=== PATIENT | female | born 1955 | race Caucasian/White ===

== ENCOUNTER → 2016-04-21 | Outpatient (CLI) | payer OTHER ==
[~2016-04-21] MED LIST: ADVIL200 M1; AMLODIPINE BESYL5 MG PO; ASPIRIN PO; BUPROPION XL300 MG PO; CALCIUM 500 + D1 TAB PO; CARVEDILOL12.5 MG PO; CENTRUM PO; CENTRUM SILVER1 EAC3 PO; CHANTIX0.5 MG PO; CLEOCIN PO; COREG6.25 MG PO; ECOTRIN325 MG PO; FISH OIL PO; IBUPROFEN800 MG PO; LISINOPRIL10 MG PO; LORTAB 10-3251 EACH PO; LORTAB 7.5-5001 TAB PO; PEPCID AC20 M2 PO; PRILOSEC PO; PRILOSEC40 MG PO; SUPER B COMPLE150 MG; TRAMADOL HCL50 M1 PO; VIT B COMPLEX PO; VITAMIN D 4001 UDTAB PO; VOLTAREN75 MG PO
--- NOTE | ~2016-04-21 | MR103 ---
[facility] A Service of [facility] RADIOLOGY TEXT RESULTS PATIENT: JARROD ALARCON [facility] UNIT #: [id number] AGE: [address]: Aravind Ferguson MD SEX: F ORDER DR: [id number] [facility] [address] [place], [place] [address] [id number] O MR#: [id number] Acc #: [id number] NAME: JARROD ALARCON : 1955 SEX: F STUDY DATE/TIME: 04/21/2016 20:26 UNIT: [facility] ROOM: STUDY DESCRIPTION: MR Knee Wo Contrast Lt Attending Physician: Generic Doctor Not In System Referring Physician: Generic Doctor Not In System Ordering Physician: Physician Non-Staff Primary Care Physician: Moe Lake M.D. MRI CENTER REPORT This report is preliminary unless electronic signature is present. EXAM Left knee MRI without contrast 04/21/2016 HISTORY A 60-year-old female with left knee pain since surgery in January 2015. COMPARISON STUDIES Left knee MRI 01/09/2015. TECHNIQUE Routine unenhanced multiplanar, multisequence high field MR imaging of the left knee was performed. FINDINGS There is a significantly diminutive appearance of the posterior horn medial meniscus consistent with prior partial medial meniscectomy. The remnant of the posterior horn is degenerated. There is degenerative fraying involving the free margin of the lateral body segment lateral meniscus. Cruciate and collateral ligaments are intact. Extensor mechanism is intact. There is a moderate joint effusion. No significant popliteal cyst. 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 There is full-thickness articular cartilage loss in the central femoral trochlea which is unchanged. Lateral compartment demonstrates moderate to high-grade chondromalacia along the central weightbearing lateral tibial plateau. This is unchanged from the prior study. There is extensive full-thickness articular cartilage loss throughout the medial compartment which has progressed significantly since [facility] A Service [facility] RADIOLOGY TEXT RESULTS PATIENT: JARROD ALARCON LOCATION: [facility] : 53 UNIT #: [id number] AGE: [address]: Aravind Ferguson MD SEX: F ORDER DR: the previous study. There is reactive subchondral marrow edema in the far medial aspect of the medial femoral condyle and medial tibial plateau. Remaining bone marrow signal is within expected limits. Visualized musculature is unremarkable. IMPRESSION 1. Postsurgical changes from prior partial medial meniscectomy. There is diffuse degeneration of the remnant of the posterior horn of the medial meniscus. 2. Degenerative fraying of the free margin body segment lateral meniscus. 3. No acute ligament injury. 4. Extensive full-thickness articular cartilage loss throughout the medial compartment which has progressed significantly since the prior examination. There is reactive subchondral marrow edema in the medial femoral condyle and medial tibial plateau. 5. 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 These findings are unchanged from the prior study. Some moderate joint effusion. Dictated by... Nnamdi Mao M.D. THIS IS AN ELECTRONICALLY VERIFIED REPORT Nnamdi Mao M.D. at 04/23/2016 3:56 PM WEN/joel TD: 04/22/2016 13:26 JOB #: [id number] MRI CENTER REPORT COPY
== END | disposition home or self-care (01) ==
LOC: CMRI 19:24
DX: S83.207A Unspecified tear of unspecified meniscus, current injury, left knee, initial encounter (principal); M25.562 Pain in left knee; M23.301 Other meniscus derangements, unspecified lateral meniscus, left knee; M22.42 Chondromalacia patellae, left knee; M25.462 Effusion, left knee; Z98.890 Other specified postprocedural states
CPT/HCPCS: 73721

== ENCOUNTER → 2016-05-21 | Outpatient (CLI) | payer BC ==
--- NOTE | ~2016-05-21 | CR63 ---
[facility] A Service of [facility] & [facility] RADIOLOGY TEXT RESULTS PATIENT: JARROD ALARCON LOCATION: [facility] : 53 UNIT #: [id number] AGE: [address]: Aravind Ferguson MD SEX: F ORDER DR: [id number] [facility] [address] [place], [place] [address] [id number] O MR#: [id number] Acc #: [id number] NAME: JARROD ALARCON : 1955 SEX: F STUDY DATE/TIME: 05/21/2016 13:09 UNIT: [facility] ROOM: STUDY DESCRIPTION: CR Chest 2 View Attending Physician: Aravind Ferguson M.D. Referring Physician: Aravind Ferguson M.D. Ordering Physician: Aravind Ferguson M.D. Primary Care Physician: Moe Lake M.D. MEDICAL IMAGING REPORT This report is preliminary unless electronic signature is present EXAM Chest 05/21/2016 HISTORY 61-year-old woman preop clearance for a left total knee arthroplasty. Osteoarthritis. Pain swelling with morbid obesity. Sleep apnea. Patient gives smoking history. COMPARISON 06/01/2015. FINDINGS Two-view chest demonstrates normal cardiac size and configuration. Aorta appears normal. Hilar structures are preserved. Right lung is fully expanded and clear. Left lung demonstrates discoid atelectasis in the left lower lobe. There also appears to be partial eventration of the left hemidiaphragm. Lap band is noted with a questionable hiatal hernia. IMPRESSION Discoid atelectasis left lung base. Previous lap band placement with questionable associated hiatal hernia. Partial eventration left hemidiaphragm. No acute chest finding. Dictated by... Sonido Benoit M.D. THIS IS AN ELECTRONICALLY VERIFIED REPORT Sonido Benoit M.D. at 05/21/2016 1:59 PM FERNANDO/john TD: 05/21/2016 13:53 JOB #: [id number] [facility] A Service of [facility] & [facility] RADIOLOGY TEXT RESULTS PATIENT: JARROD ALARCON LOCATION: [facility] : 53 UNIT #: [id number] AGE: [address]: Aravind Ferguson MD SEX: F ORDER DR: MEDICAL IMAGING REPORT Page 1 of 1 COPY
--- NOTE | ~2016-05-21 | CR172 ---
[facility] A Service of [facility] & [facility] RADIOLOGY TEXT RESULTS PATIENT: JARROD ALARCON LOCATION: [facility] : 53 UNIT #: [id number] AGE: [address]: Aravind Ferguson MD SEX: F ORDER DR: [id number] [facility] [address] [place], [place] [address] [id number] O MR#: [id number] Acc #: [id number] NAME: JARROD ALARCON : 1955 SEX: F STUDY DATE/TIME: 05/21/2016 13:15 UNIT: [facility] ROOM: STUDY DESCRIPTION: CR Knee 3 Views Lt Attending Physician: Aravind Ferguson M.D. Referring Physician: Aravind Ferguson M.D. Ordering Physician: Aravind Ferguson M.D. Primary Care Physician: Moe Lake M.D. MEDICAL IMAGING REPORT This report is preliminary unless electronic signature is present EXAM Left knee 3 views INDICATIONS 61-year-old female preop for left knee arthroplasty. COMPARISON 12/15/2014 FINDINGS There is moderate medial compartment narrowing. There is patellofemoral compartment and lateral compartment degenerative change. No joint effusion or fracture. IMPRESSION Moderate medial compartment narrowing Dictated by... Bennie Lambert M.D. THIS IS AN ELECTRONICALLY VERIFIED REPORT Bennie Lambert M.D. at 05/21/2016 4:30 PM SHELTON/jaylon TD: 05/21/2016 15:24 JOB #: [id number] MEDICAL IMAGING REPORT Page 1 of 1 COPY
--- NOTE | ~2016-05-21 | EKG ---
PATIENT: JARROD ALARCON UNIT #: [id number] Ventricular Rate: 80 BPM Atrial Rate: 80 BPM P-R Interval: 154 ms QRS Duration: 86 ms Q-T Interval: 402 ms QTC Calculation(Bezet): 463 ms P [place]: 64 degrees Calculated R [place]: -9 degrees Calculated T [place]: 31 degrees Diagnosis Line: Normal sinus rhythm Diagnosis Line: Low voltage QRS Diagnosis Line: Otherwise normal ECG Diagnosis Line: When compared with ECG of 28-JUN-2015 10:03, Diagnosis Line: T wave amplitude has decreased in Anterior leads Diagnosis Line: Confirmed by OLENA FLYNN MD ([id number]) on 05/21/2016 Diagnosis Line: 9:23:28 PM INTERPRETING MD: GEE ALANIS
[2016-05-21 11:47] LABS: HEMATOCRIT 37.9 % (35.0-45.0); HEMOGLOBIN 12.6 gm/dL (12.0-16.0); MEAN CELL VOLUME 89.7 FL (83-96); MEAN CORPUSCULAR HEMOGLOBIN 29.8 PG (28-34); MEAN CORPUSCULAR HGB CONC 33.2 g/dL (30-36); MEAN PLATELET VOLUME 9.7 FL (6.5-11.5); RED BLOOD COUNT 4.22 X10e (3.90-5.30); RED CELL DISTRIBUTION WIDTH 14.8 % (11.0-15.5)
[2016-05-21 11:58] LABS: URINE APPEARANCE CLEAR; URINE BILIRUBIN NEG (NEG); URINE BLOOD NEG (NEG); URINE COLOR YELLOW; URINE GLUCOSE NEG (NEG); URINE KETONE NEG (NEG); URINE LEUKOCYTE ESTERASE TRACE (NEG); URINE NITRATE NEG (NEG); URINE PH 5.5 (5-8); URINE PROTEIN NEG (NEG); URINE SPECIFIC GRAVITY 1.009 (1.003-1.035); URINE UROBILINOGEN 0.2 MG/DL (NEG)
[2016-05-21 11:59] LABS: PROTHROMBIN TIME (PATIENT) 10.8 SECONDS (9.6-11.5)
[2016-05-21 12:02] LABS: URBCS1 AUWI 0-2 /[HPF] (0-2); URINE BACTERIA AUWI NEG (NEGATIVE); URINE SQUAMOUS EPITHELIAL CELL NONE SEEN /[HPF]; UWBCS1 AUWI 0-2 (0-5)
[2016-05-21 12:07] LABS: CULTURE INDICATED? NO; URINE SOURCE CLEAN CATCH
[2016-05-21 12:26] LABS: CALCIUM SERUM 8.6 mg/dL (8.4-10.2); CREATININE SERUM 0.7 mg/dL (0.6-1.4); GLOM FILT RATE Estimated 92.2 mL/min (>60); POTASSIUM 3.9 mmol/L (3.5-5.1)
== END | disposition home or self-care (01) ==
LOC: CAMB 10:50
PROVIDERS: Orthopaedic Surgery
DX: Z01.818 Encounter for other preprocedural examination (principal); M17.12 Unilateral primary osteoarthritis, left knee; G47.30 Sleep apnea, unspecified; J98.11 Atelectasis; Z98.84 Bariatric surgery status
CPT/HCPCS: 36415; 71020; 73562; 80048; 81003; 85027; 85610; 86850; 86900; 86901; 87070; 93005

== ENCOUNTER 2016-06-03 05:50 | Inpatient (IN) | payer BC ==
--- NOTE | ~2016-06-03 | CR169 ---
[facility] A Service of [facility] & [facility] RADIOLOGY TEXT RESULTS PATIENT: JARROD ALARCON LOCATION: [facility]01 : 51 UNIT #: [id number] AGE: [address]: Aravind Ferguson MD SEX: F ORDER DR: [id number] [facility] [address] [place], [place] [address] [id number] I MR#: [id number] Acc #: [id number] NAME: JARROD ALARCON : 1955 SEX: F STUDY DATE/TIME: 06/03/2016 10:17 UNIT: [facility] ROOM: [facility] STUDY DESCRIPTION: CR Knee 2 Views Lt Attending Physician: Aravind Ferguson M.D. Ordering Physician: Aravind Ferguson M.D. Primary Care Physician: Moe Lake M.D. MEDICAL IMAGING REPORT This report is preliminary unless electronic signature is present EXAM Left knee. HISTORY Left total knee replacement. Evaluate prosthesis. FINDINGS AP and lateral views of the knee were obtained. Compared to 05/21/2016. Left total knee prosthesis present. There is no fracture or dislocation. IMPRESSION Status post left total knee replacement. Dictated by... Robinson Doherty M.D. THIS IS AN ELECTRONICALLY VERIFIED REPORT Robinson Doherty M.D. at 06/03/2016 2:47 PM Gabriela TD: 06/03/2016 13:13 JOB #: [id number] MEDICAL IMAGING REPORT Page 1 of 1 COPY
--- NOTE | ~2016-06-03 | OR ---
Unit #: [id number] #: [id number] Patient: JARROD WATTS [id number] [address] [place], [place] [address] [id number] I MR#: [id number] NAME: JARROD WATTS ROOM: [facility] Date of Procedure: 06/03/2016 Admission Date: 06/03/2016 Surgeon: Aravind Ferguson M.D. : 1955 Attending Physician: Aravind Ferguson M.D. Primary Care Physician: Moe Lake M.D. OPERATIVE REPORT PREOPERATIVE DIAGNOSIS Left knee primary osteoarthritis. POSTOPERATIVE DIAGNOSIS Left knee primary osteoarthritis. PROCEDURE PERFORMED Left total knee arthroplasty. SPEECH PATHOLOGY ASSISTANT Ant Viramontes CFA. ANESTHESIA General with LMA. COMPLICATIONS None. SPECIMENS None. DRAINS None. SURGICAL IMPLANTS 1. Kamila Persona total knee arthroplasty system. Size 6 PS femoral component. 2. Size D tibial tray with stem extension, size 11 vitamin E polyethylene insert. 3. 32 mm vitamin E patellar button. INDICATIONS FOR PROCEDURE Ms. Watts is a 61-year-old female patient of [facility], who has had persistent left medial side knee pain. Her injury occurred at work over a year ago. She subsequently had knee arthroscopy for meniscal tear. She had progressive knee arthritis after the tear. She failed to respond to conservative treatment. She wished to proceed with elective knee surgery. It was felt that she would benefit from total knee arthroplasty since conservative treatment had failed. Risks, benefits, and alternatives of surgery were discussed with the patient. Informed consent was obtained. Risks include, but not limited to, infection, bleeding, nerve injury, blood clots, risks associated with anesthesia, need for further surgery, Unit #: [id number] #: [id number] Patient: JARROD WATTS and possibly . DESCRIPTION OF PROCEDURE On 06/03/2016, the patient was seen in preoperative holding area, where her surgical site was marked. Preoperative antibiotics were received. H and P and consent updated. Preoperative block performed. She was taken to the operating room and placed on operative table in supine position. General anesthesia was provided without complication. Left thigh high tourniquet was placed. Left lower extremity was prepped and draped in typical sterile fashion. Time-out was performed confirming the correct surgical site and procedure. Esmarch was used to exsanguinate the leg and tourniquet was inflated to 300 mmHg. The knee was flexed and a standard anterior approach for total knee arthroplasty was performed. A longitudinal incision was made. Medial parapatellar arthrotomy was then made. The leg was extended and the fat pad was excised. Patella was everted. There was significant wear of the patellofemoral joint. It was measured about 23 mm. Reamer was then used to take it down to about 15 mm in depth. It was sized at 32 mm. Three lug holes were drilled in standard fashion. Patellar guard was placed. Retractors were then placed and the knee was flexed up. Starting drill was placed into the femur followed by the sword and distal femoral cutting jig. It was set at +[address]. There was also a 5 degrees valgus. Distal femoral cut was made. Next, the anterior referencing guide was used. It was measured at a size 6. The four-in-one cutting jig was placed. It was at 3 degrees external rotation. Four cuts were made with careful protection of soft tissues. No notching noted. Instruments were removed and focus was placed on the tibia. Tibial jig was placed. Careful attention of slope, height, and varus/valgus noted. 4 mm was measured off the medial side. Drop izabel checked alignment. The tibial cut was carefully made. Sizing blocks were used. It was felt to still be tight in flexion and extension. Tibial guide was placed back and 2 more millimeters were taken down. Next, the tibial tray was pinned into place. Femoral trial component was placed. A 10 mm insert was placed. The knee was flexed and extended. It was felt 11 mm was more appropriate. The patella tracked midline. At this point, final components were placed on the back table. The knee was thoroughly irrigated. Cement was mixed on the back table. This was Palacos R+G cement. It was then placed on the tibia followed by placement of tibial tray. Excess cement removed. In similar fashion, the femur was placed along with the patella button. A trial 11 mm insert was placed. After approximately 12 minutes, the cement had hardened. The remainder of 3 L normal saline containing bacitracin was pulsed through the wound. It was felt the 11 mm insert was appropriate. The final 11 mm polyethylene insert was placed in standard fashion. The knee was cycled and noted to be stable with full motion. At this point, tourniquet was released. Tranexamic acid had been provided. Hemostasis was achieved. Approximately 300 mL of Betadine saline solution was poured into the wound. It was then suctioned dry followed by standard saline. At this point, the arthrotomy was closed with #1 Vicryl suture followed by 2-0 Vicryl for subcutaneous tissues and 3-0 running subcuticular Monocryl stitch for the skin. Dermabond, Telfa, and Tegaderm were placed followed by an Valentin bandage. The patient was subsequently awakened from general anesthesia in stable condition and taken to PACU postoperatively. POSTOPERATIVE PLAN The patient will be kept in the hospital. She will be on Lovenox for DVT prophylaxis while in the hospital and transition to aspirin daily for 6 weeks upon discharge. She will have standard 24-hour antibiotic protocol. She will have SCDs. She will be weightbearing as tolerated with physical Unit #: [id number] #: [id number] Patient: JARROD WATTS. No complications were encountered during the surgical procedure. Dictated by... Mary Kevin/ashok TD: 06/04/2016 05:52 JOB #: [id number] OPERATIVE REPORT Page 1 of 1 X X PROCEDURE OPERATIVE NOTE
--- NOTE | ~2016-06-03 | DS ---
Unit #: [id number] #: [id number] Patient: JARROD ALARCON [id number] [address] [place], [place] [address] [id number] I MR#: [id number] NAME: JARROD ALARCON ROOM: 447 Age: 61 Sex: F Admission Date: 06/03/2016 : 1955 Discharge Date: 06/04/2016 Attending Physician: Aravind Ferguson M.D. Primary Care Physician: Moe Lake M.D. DISCHARGE SUMMARY DISCHARGE DIAGNOSIS Left knee osteoarthritis status post total knee arthroplasty. DISCHARGE MEDICATIONS The patient will restart all of her home medications in addition to [place] 10/325 mg 1-2 tablets p.o. q.4 hours p.r.n. pain. She, also, will restart her aspirin 325 mg p.o. daily for DVT prophylaxis. DETAILS OF HOSPITAL STAY Ms. Alarcon had an uneventful left total knee arthroplasty one day prior. She worked well with physical therapy. She is felt to be safe for discharge home. Labs were stable postoperatively. Pain was controlled. DISPOSITION Home. DISCHARGE INSTRUCTIONS 1. Patient will keep the dressing on, but she may shower. 2. She will work on range of motion with therapy. 3. She will have home physical therapy come to her house. 4. She is weightbearing as tolerated. 5. She will take aspirin daily, 325 mg, for DVT prophylaxis. 6. The patient had a preoperative assessment and met criteria for once daily aspirin. 7. She will follow up in 2 weeks. Dictated by... Aravind Ferguson M.D. MILANA/ernestine TD: 06/04/2016 09:16 JOB #: [id number] Unit #: [id number] #: [id number] Patient: JARROD ALARCON DISCHARGE SUMMARY Page 1 of 1 X X DISCHARGE SUMMARY
--- NOTE | ~2016-06-03 | BMI ---
[facility] Nutrition Therapy DATE: 06/04/16 Patient: JARROD ALARCON Physician: DESIRE Address: [address] [place] [address] Room/Bed: [address] [place] [address], Zip: [place] [address] Admit Date: 06/03/16 Date of : [birth year] Height: 5 1 Weight: 236 107.5 HIGH BMI NOTE: DX: 61 Y.O. FEMALE ADMITTED FOR OSTEOARTHRITIS (L) KNEE ANTHROPOMETRICS: 5'1", WT: 236# (107 KG), BMI: 44.6 DIET: REGULAR INTERVENTION: 1. REGULAR DIET RECOMMENDATIONS: 1. RECOMMEND TO CHANGE CURRENT DIET ORDER TO CC+HH TO PROMOTE GRADUAL WEIGHT LOSS TOWARDS HEALTHY BMI (19.0-25.0) OR +/-10%IBW RD WILL F/U PER PROTOCOL Respectfully, RICHMOND GOMEZ MS, RD, LD [facility] cc: client file
[~2016-06-03 05:50] MED LIST changes: -AMLODIPINE BESYL5 MG PO; -BUPROPION XL300 MG PO; -CARVEDILOL12.5 MG PO; -CENTRUM SILVER1 EAC3 PO; -COREG6.25 MG PO; -ECOTRIN325 MG PO; -LORTAB 10-3251 EACH PO; -PRILOSEC PO; -SUPER B COMPLE150 MG; -VOLTAREN75 MG PO
[2016-06-03] MEDS ORDERED: VOLTAREN75 MG PO (11:47)
[2016-06-03] MEDS ORDERED: CARVEDILOL12.5 MG PO (11:48)
[2016-06-03] MEDS ORDERED: AMLODIPINE BESYL5 MG PO (11:49)
[2016-06-03] MEDS ORDERED: BUPROPION XL300 MG PO (11:49)
[2016-06-03] MEDS ORDERED: SUPER B COMPLE150 MG (11:51)
[2016-06-03] MEDS ORDERED: CENTRUM SILVER1 EAC3 PO (11:51)
[2016-06-03] MEDS ORDERED: PRILOSEC PO (16:19)
[2016-06-03] MEDS ORDERED: COREG6.25 MG PO (16:20)
[2016-06-03] MEDS ORDERED: ECOTRIN325 MG PO (16:22)
[2016-06-04 03:38] LABS: BASOPHIL% 0.3 % (0-2.5); EOSINOPHIL% 0.2 % (0.0-7.0); HEMATOCRIT 32.1 % (35.0-45.0); HEMOGLOBIN 10.3 gm/dL (12.0-16.0); LYMPHOCYTE# 1.9 X10e3 (1.0-3.5); LYMPHOCYTE% 14.8 % (17.0-45.0); MEAN CELL VOLUME 90.4 FL (83-96); MEAN CORPUSCULAR HEMOGLOBIN 29.1 PG (28-34); MEAN CORPUSCULAR HGB CONC 32.2 g/dL (30-36); MEAN PLATELET VOLUME 10.1 FL (6.5-11.5); MONOCYTE% 7.5 % (3.0-12.0); NEUTROPHIL# 10.2 X10e3 (1.5-7.1); NEUTROPHIL% 77.2 % (40-75); PLATELET COUNT 186 X10e3 (140-420); RED BLOOD COUNT 3.55 X10e (3.90-5.30); RED CELL DISTRIBUTION WIDTH 14.9 % (11.0-15.5); WHITE BLOOD COUNT 13.2 X10e3 (4.0-10.5)
[2016-06-04 03:41] LABS: DIFF IND NO
[2016-06-04 04:04] LABS: CALCIUM SERUM 8.3 mg/dL (8.4-10.2); CREATININE SERUM 0.8 mg/dL (0.6-1.4); GLOM FILT RATE Estimated 78.5 mL/min (>60); POTASSIUM 3.7 mmol/L (3.5-5.1)
[2016-06-04] MEDS ORDERED: LORTAB 10-3251 EACH PO (11:04)
== END 2016-06-04 11:28 | disposition home health service (06) | DRG 470 ==
LOC: CSUR 05:50 → CPACUOF 10:16 → C4B 11:10
PROVIDERS: Orthopaedic Surgery
PROC: 0SRD0J9 Replacement of Left Knee Joint with Synthetic Substitute, Cemented, Open Approach (ICD-10-PCS; principal; 2016-06-03 07:30)
DX: M17.12 Unilateral primary osteoarthritis, left knee (principal); I10 Essential (primary) hypertension; F17.210 Nicotine dependence, cigarettes, uncomplicated; K21.9 Gastro-esophageal reflux disease without esophagitis; G47.33 Obstructive sleep apnea (adult) (pediatric); Z90.49 Acquired absence of other specified parts of digestive tract; Z98.84 Bariatric surgery status
CPT/HCPCS: 73560; 80048; 85025; 94760; 94761; 97110; 97116; 97161; C1776; J0171; J0690; J0735; J1100; J1170; J1650; J1885; J2250; J2405; J2765; J2795; J3010

== ENCOUNTER → 2016-09-24 | Outpatient (CLI) | payer BC ==
[~2016-09-24] MED LIST changes: +AMLODIPINE BESYL5 MG PO; +BUPROPION XL300 MG PO; +CARVEDILOL12.5 MG PO; +CENTRUM SILVER1 EAC3 PO; +COREG6.25 MG PO; +ECOTRIN325 MG PO; +LORTAB 10-3251 EACH PO; +PRILOSEC PO; +SUPER B COMPLE150 MG; +VOLTAREN75 MG PO
--- NOTE | ~2016-09-24 | MY29 ---
[facility] A Service of [facility] RADIOLOGY TEXT RESULTS PATIENT: JARROD ALARCON LOCATION: [facility] : 53 UNIT #: [id number] AGE: [address]: Moe Lake MD SEX: F ORDER DR: [id number] [facility] [address] [place], [place] [address] [id number] O MR#: [id number] Acc #: [id number] NAME: JARROD ALARCON : 1955 SEX: F STUDY DATE/TIME: 09/24/2016 11:19 UNIT: [facility] ROOM: STUDY DESCRIPTION: MY DENISHA SCREENING W/ CAD BILAT Attending Physician: Moe Lake M.D. Referring Physician: Moe Lake M.D. Ordering Physician: Moe Lake M.D. Primary Care Physician: Moe Lake M.D. MEDICAL IMAGING REPORT This report is preliminary unless electronic signature is present EXAM Digital screening mammogram 09/24/2016 HISTORY 61-year-old woman no risk elevation. Annual screen. COMPARISON 07/25/2015. FINDINGS Digital imaging of each breast was completed utilizing a two-view examination of each breast in craniocaudal and mediolateral-oblique projections. Review and interpretation of digital mammograms include a second review in conjunction with FDA-approved CAD device. There is a normal parenchymal presentation bilaterally consistent with the patient's age. There are no breast masses imaged and no parenchymal asymmetry is visualized. There are no suspicious microcalcifications and I see no focal architectural disturbance. IMPRESSION Negative screening digital mammogram. One-year followup recommended. Patients over the age of 40 are entered into a reminder system with target due date for the next mammogram. A result letter will also be sent to the patient. BIRADS: 1 Negative ADDENDUM Breast parenchyma is fatty replaced Dictated by... Sonido Benoit M.D. [facility] A Service of [facility] RADIOLOGY TEXT RESULTS PATIENT: JARROD ALARCON LOCATION: [facility] : 51 UNIT #: [id number] AGE: [address]: Moe Lake MD SEX: F ORDER DR: THIS IS AN ELECTRONICALLY VERIFIED REPORT Sonido Benoit M.D. at 09/24/2016 1:57 PM FERNANDO/john TD: 09/24/2016 13:37 JOB #: [id number] MEDICAL IMAGING REPORT Page 1 of 1 COPY
== END | disposition home or self-care (01) ==
LOC: CWCC 10:35
DX: Z12.31 Encounter for screening mammogram for malignant neoplasm of breast (principal)
CPT/HCPCS: G0202